=== PATIENT | male | born 1955 | race Caucasian/White ===

== ENCOUNTER 2018-10-22 13:45 | Inpatient (IN) | payer MEDICARE, MEDICAID ==
[~2018-10-22] VITALS: Ht 185.4 cm; Wt 107.0 kg
[~2018-10-22 13:45] MED LIST: CENTRUM SILVER1 EAC4 PO; FLEXERIL PO; NORCO 5-325 TA1 EACH PO; TORADOL 10 MG T10 MG PO
[2018-10-22 13:49] VITALS: BP 189/97
[2018-10-22] MEDS ORDERED: JANUMET 50-5001 EACH PO (13:58)
[2018-10-22] MEDS ORDERED: LIPITOR 20 MG T20 M1 PO (13:59)
[2018-10-22] MEDS ORDERED: XARELTO20 MG PO (13:59)
[2018-10-22] MEDS ORDERED: PROTONIX40 M1 PO (13:59)
[2018-10-22] MEDS ORDERED: NEURONTIN 300300 M1 PO (14:00)
[2018-10-22 14:30] LABS: HEMATOCRIT 37.5 % (42.0-52.0); HEMOGLOBIN 12.5 gm/dL (14.0-18.0); MCHC 33.3 g/dL (28.0-37.0); MCV 84.2 fL (80.0-100.0); MPV 9.2 fl. (7.2-11.1); NUCLEATED RBCS 0 /100WBC; PLATELET COUNT* 205 thou/uL (150-400); RBC 4.45 mil/uL (4.50-6.00); RDW-CV 14.8 % (10.5-14.5); WBC 15.5 thou/uL (4.0-11.0)
[2018-10-22 14:35] LABS: APTT 30.8 Seconds (25.0-31.3); INR 1.4; PROTIME 14.5 Seconds (9.20-11.50)
[2018-10-22 14:46] LABS: ALBUMIN 3.7 g/dL (3.4-5.0); ALKALINE PHOSPHATASE 131 U/L (46-116); ANION GAP 10 mmol/L (7-16); BUN 12 mg/dL (7-18); CALCIUM 8.9 mg/dL (8.5-10.1); CHLORIDE 101 mmol/L (98-107); CO2 30 mmol/L (21-32); GLUCOSE 122 mg/dL (70-99); LIPASE 59 U/L (73-393); MAGNESIUM 1.3 mg/dL (1.8-2.4); NT-PRO BRAIN NAT PEPTIDE 1964 pg/mL (<300); POTASSIUM 3.6 mmol/L (3.5-5.1); SGOT 17 U/L (15-37); SGPT 21 U/L (30-65); SODIUM 141 mmol/L (136-145); TOTAL BILIRUBIN 1.1 mg/dL (<0.1-1.0); TOTAL PROTEIN 7.8 g/dL (6.4-8.2); TROPONIN-I LEVEL <0.06 ng/mL (<0.06)
[2018-10-22 15:06] LABS: ABSOLUTE EOSINOPHILS 0.6 thou/uL (0.0-0.7); ABSOLUTE LYMPHOCYTES 0.6 thou/uL (0.8-5.3); ABSOLUTE MONOCYTES 0.2 thou/uL (0.0-1.2); ABSOLUTE NEUTROPHILS 14.1 thou/uL (1.6-8.1); PLATELET ESTIMATE ADEQUATE
[2018-10-22 16:00] VITALS: BP 148/71
[2018-10-22 17:12] VITALS: BP 169/81
[2018-10-23 04:22] LABS: HEMATOCRIT 33.9 % (42.0-52.0); HEMOGLOBIN 11.4 gm/dL (14.0-18.0); MCH 28.3 pg (26.0-34.0); MCHC 33.7 g/dL (28.0-37.0); MCV 84.1 fL (80.0-100.0); MPV 9.9 fl. (7.2-11.1); RBC 4.03 mil/uL (4.50-6.00); RDW-CV 14.7 % (10.5-14.5); WBC 18.9 thou/uL (4.0-11.0)
[2018-10-23 04:39] LABS: CALCIUM 8.8 mg/dL (8.5-10.1); CREATININE 1.5 mg/dL (0.6-1.3); MAGNESIUM 1.4 mg/dL (1.8-2.4); POTASSIUM 3.4 mmol/L (3.5-5.1)
[2018-10-23 07:50] VITALS: BP 131/77
[2018-10-23] MEDS ORDERED: METOPROLOL TART25 MG PO (08:02)
[2018-10-23] MEDS ORDERED: JANUMET 50-5001 EACH PO (08:02)
[2018-10-23 16:00] VITALS: BP 107/53
--- NOTE | 2018-10-23 16:57 | 2DMMODE ---
[place] [address] 2 D/M-MODE ECHOCARDIOGRAM Name: CHARY SINGH Room: [address] IN [facility]#: [id number] Admission: 10/22/18 Attend Phys: Octavia Ortiz, Discharge: Date of : 57 Date of Service: 10/23/18 1656 Report #: [id number] THIS REPORT FOR: //name// APPROVED REPORT Study performed: 10/23/2018 15:12:34 EXAM: Comprehensive 2D, Doppler, and color-flow Echocardiogram Patient Location: In-Patient Room #: 220 Status: routine BSA: 2.30 HR: 94 bpm BP: 131/77 mmHg Rhythm: NSR Other Information Study Quality: Good Indications Tachycardia 2D Dimensions IVSd: 13.26 (7-11mm) LVOT Diam: 21.64 (18-24mm) LVDd: 52.53 mm PWd: 15.01 (7-11mm) Ascending Ao: 33.85 (22-36mm) LVDs: 32.58 (25-40mm) Aortic Root: 35.22 mm Volumes Left Atrial Volume (Systole) LA ESV Index: 34.90 mL/m2 Aortic Valve AoV Peak Vin.: 1.65 m/s AO Peak Gr.: 10.89 mmHg LVOT Max P.19 mmHg AO Mean Gr.: 7.00 mmHg LVOT Mean P.32 mmHg LVOT Max V: 1.52 m/s AO V2 VTI: 29.40 cm LVOT Mean V: 1.08 m/s ALEX (VTI): 3.77 cm2 LVOT V1 VTI: 30.15 cm Mitral Valve E/A Ratio: 1.10 MV Decel. Time: 236.20 ms MV E Max Vin.: 1.02 m/[place] [address] 2 D/M-MODE ECHOCARDIOGRAM Name: CHARY SINGH Room: [address] IN .R.#: [id number] Admission: 10/22/18 Attend Phys: Octavia Ortiz, Discharge: Date of : 57 Date of Service: 10/23/18 1656 Report #: [id number] MV PHT: 68.50 ms MVA (PHT): 3.21 cm2 TDI E/Lateral E': 9.27 E/Medial E': 10.20 Medial E' Vin.: 0.10 m/s Lateral E' Vin.: 0.11 m/s Pulmonary Valve PV Peak Vin.: 1.30 m/s PV Peak Gr.: 6.71 mmHg Tricuspid Valve RAP Estimate: 5.00 mmHg TR Peak Gr.: 31.20 mmHg RVSP: 36.00 mmHg PA Pressure: 36.00 mmHg Left Ventricle The left ventricle is normal size. There is normal LV segmental wall motion. Mild concentric left ventricular hypertrophy. Left ventricular systolic function is normal. LVEF is 65-70%. Transmitral Doppler flow pattern suggests pseudonormalization. Right Ventricle The right ventricle is normal size. The right ventricular systolic function is normal. Atria Left atrium is at the upper limits of normal. The right atrium size is normal. Aortic Valve Mild aortic valve sclerosis. No aortic regurgitation is present. There is no aortic valvular stenosis. Mitral Valve The mitral valve is normal in structure. Trace mitral regurgitation. No evidence of mitral valve stenosis. Tricuspid Valve The tricuspid valve is normal in structure. Trace tricuspid regurgitation. The RVSP is 35-40 mmHg. Pulmonic Valve The pulmonary valve is normal in structure. There is no pulmonic [place] [address] 2 D/M-MODE ECHOCARDIOGRAM Name: CHARY SINGH Room: [address]#: [id number] Admission: 10/22/18 Attend Phys: Octavia Ortiz, Discharge: Date of : 57 Date of Service: 10/23/18 1656 Report #: [id number] Great Vessels The aortic root is normal in size. IVC is normal in size and collapses >50% with inspiration. Pericardium There is no pericardial effusion. <Conclusion> The left ventricle is normal size. Mild concentric left ventricular hypertrophy. Left ventricular systolic function is normal. LVEF is 65-70%. Transmitral Doppler flow pattern suggests pseudonormalization. Trace mitral regurgitation. Trace tricuspid regurgitation. The RVSP is 35-40 mmHg. IVC is normal in size and collapses >50% with inspiration. <ELECTRONICALLY SIGNED> By: Lamonte Perez MD, FACC 10/23/18 1656 55 55 Lamonte Perez MD, FACC /INF
[2018-10-23 19:40] VITALS: BP 120/65
[2018-10-24] VITALS: BP 111/60
[2018-10-24 04:00] VITALS: BP 128/67
[2018-10-24 05:27] LABS: HEMATOCRIT 30.1 % (42.0-52.0); HEMOGLOBIN 10.3 gm/dL (14.0-18.0); MCHC 34.1 g/dL (28.0-37.0); MCV 84.9 fL (80.0-100.0); RBC 3.54 mil/uL (4.50-6.00); RDW-CV 14.7 % (10.5-14.5); WBC 18.6 thou/uL (4.0-11.0)
[2018-10-24 05:36] LABS: CALCIUM 8.5 mg/dL (8.5-10.1); CREATININE 1.5 mg/dL (0.6-1.3); MAGNESIUM 1.6 mg/dL (1.8-2.4); POTASSIUM 4.4 mmol/L (3.5-5.1)
[2018-10-24 08:00] VITALS: BP 141/67
[2018-10-24 11:44] VITALS: BP 122/65
[2018-10-24 16:07] VITALS: BP 146/70
[2018-10-24 18:48] VITALS: BP 165/96
[2018-10-25] VITALS (7 sets, daily range): BP systolic 126–155; BP diastolic 63–93
[2018-10-25 10:24] LABS: CALCIUM 9.1 mg/dL (8.5-10.1); CREATININE 1.1 mg/dL (0.6-1.3); POTASSIUM 4.3 mmol/L (3.5-5.1)
--- NOTE | 2018-10-25 12:57 | EKG ---
[place] [address] ELECTROCARDIOGRAM REPORT Name: CHARY SINGH Room: [address] ADM IN .R.#: [id number] Admission: 10/22/18 Attend Phys: Octavia Ortiz MD Discharge: Date of : 57 Report #: [id number] THIS REPORT FOR: //name// [facility] ED Test Date: 2018-10-22 Test Time: 13:52:31 Pat Name: CHARY SINGH Department: Room: [facility] Gender: M Admissions Director: GRECIA : 1955 Requested By: Dc Liu Order Number: [id number] MD: Chary Forte Measurements Intervals [place] Rate: 122 P: -7 UT: 180 QRS: -39 QRSD: 93 T: 85 QT: 302 QTc: 431 Interpretive Statements Sinus tachycardia Ventricular bigeminy Left axis deviation Baseline wander in lead(s) V6 No previous ECG available for comparison Electronically Signed On 10-25-2018 12:56:50 CDT by Chary Forte [email or web address] <ELECTRONICALLY SIGNED> By: Chary Forte MD, [facility] 10/25/18 1256 [id number] 51 Chary Forte MD, [facility] /EPI
--- NOTE | 2018-10-25 14:28 | EKG ---
[place] [address] ELECTROCARDIOGRAM REPORT Name: CHARY SINGH Room: [address] ADM IN M.R.#: [id number] Admission: 10/22/18 Attend Phys: Octavia Ortiz MD Discharge: Date of : 57 Report #: [id number] THIS REPORT FOR: //name// [facility] Test Date: 2018-10-24 Test Time: 18:29:20 Pat Name: CHARY SINGH Department: Room: [address] Gender: M Enterprise Project Manager: MANUELA : 1955 Requested By: Octavia Ortiz Order Number: [id number] Reading MD: Milton Lama Measurements Intervals [place] Rate: 159 P: AR: QRS: -39 QRSD: 95 T: 122 QT: 286 QTc: 466 Interpretive Statements Atrial fibrillation with rapid V-rate Left axis deviation Repolarization abnormality, prob rate related Baseline wander in lead(s) V1 Compared to ECG 10/22/2018 13:52:31 Early repolarization now present Sinus tachycardia no longer present Ventricular premature complex(es) no longer present Electronically Signed On 10-25-2018 14:28:14 CDT by Milton Lama [email or web address] <ELECTRONICALLY SIGNED> By: Milton Lama MD, FAC 10/25/18 1428 182 [id number] Milton Lama MD, FAC /EPI
[2018-10-26] VITALS: BP 117/57
[2018-10-26 04:00] VITALS: BP 135/74
[2018-10-26 05:04] LABS: HEMOGLOBIN 10.9 gm/dL (14.0-18.0); MPV 9.7 fl. (7.2-11.1); RDW-CV 14.6 % (10.5-14.5); WBC 9.6 thou/uL (4.0-11.0)
[2018-10-26 05:12] LABS: HEMATOCRIT 32.1 % (42.0-52.0); MCH 28.6 pg (26.0-34.0); MCHC 33.9 g/dL (28.0-37.0); MCV 84.4 fL (80.0-100.0); RBC 3.8 mil/uL (4.50-6.00)
[2018-10-26 05:17] LABS: CALCIUM 9.2 mg/dL (8.5-10.1); CREATININE 0.9 mg/dL (0.6-1.3); POTASSIUM 3.8 mmol/L (3.5-5.1)
[2018-10-26 07:45] VITALS: BP 159/86
--- NOTE | 2018-10-26 09:55 | CON ---
[address] [address] CONSULTATION Name: FRANCISCOCHARY Kenton Room: [address] IN M.R.#: [id number] Admission: 10/22/18 Attend Phys: Octavia Ortiz MD Discharge: Date of : 57 Report #: [id number] THIS REPORT FOR: //name// CC: FAM unknown Octavia Ortiz CONSULTING PHYSICIAN: Dr. Ortiz. REASON FOR CONSULTATION: Acute kidney injury. HISTORY OF PRESENT ILLNESS: The patient is a 63-year-old gentleman, no preexisting history of kidney disease, admitted with cough, shortness of breath and a diagnosis of pneumonia with hypoxia. He was started on IV antibiotics and steroids. He was noted to have a creatinine yesterday of 1.5, prompting renal consult on 10/22/2018, his creatinine was 1. He did undergo a CT scan on the with contrast. Presently, he is feeling better. He has no complaints, appears to be comfortable. REVIEW OF SYSTEMS: Constitutional, psych, heme, eyes, ENT, respiratory, cardiac, GI, , endocrine, all negative except as documented above. PAST MEDICAL HISTORY: Diabetes, history of colon cancer, GERD, hypertension. SOCIAL HISTORY: No current tobacco, no alcohol. FAMILY HISTORY: Nonpertinent 63-year-old gentleman. CURRENT MEDICATIONS: Reviewed. PHYSICAL EXAMINATION: VITAL SIGNS: Blood pressure 151/70, pulse 89, temperature 36.7. GENERAL: No acute distress. Eyes open. EARS: Externally normal. NECK: Supple. CARDIOVASCULAR: Regular rate. LUNGS: No crackles. ABDOMEN: Soft. MUSCULOSKELETAL: Nontender. PSYCHIATRIC: Awake, alert. LABORATORY DATA: White cell count 18.6, hemoglobin 10.3, platelets 158. Sodium 143, potassium 4.3, chloride 106, bicarbonate 29, BUN 26, creatinine 1.1, glucose 345, calcium 9.1. ASSESSMENT AND PLAN: 1. Acute kidney injury with admission creatinine of 1.5 in the setting of pneumonia, 89 mL of oral contrast with a CTA on 10/22/2018 [place] [address] CONSULTATION Name: CHARY SINGH Room: [address] IN [facility].#: [id number] Admission: 10/22/18 Attend Phys: Octavia Ortiz MD Discharge: Date of : 57 Report #: [id number] creatinine of 1. An echo showing an ejection fraction of 65-70%. 2. Hypertension. 3. Diabetes type 2. 4. Pneumonia. 5. History of colon cancer. PLAN: Nonoliguric. creatinine improving. No further recommendations from my standpoint. I will sign off the case. He can follow up with his primary physician for routine followup once discharged. If any questions, do not hesitate to call. The patient was advised to avoid nonsteroid inflammatory drugs. Thank you for requesting my opinion in the care and management of this patient. <ELECTRONICALLY SIGNED> By: Ally Fine MD 10/26/18 0955 1122 [id number] Fine MD /nt
[2018-10-26 11:30] VITALS: BP 152/71
--- NOTE | 2018-10-26 11:32 | EKG ---
[place] [address] ELECTROCARDIOGRAM REPORT Name: CHARY SINGH Room: [address] ADM IN M.R.#: [id number] Admission: 10/22/18 Attend Phys: Octavia Ortiz MD Discharge: Date of : 57 Report #: [id number] THIS REPORT FOR: //name// [facility] Test Date: 2018-10-26 Test Time: 10:08:51 Pat Name: CHARY SINGH Department: Room: [address] Gender: M Field Support Representative: : 1955 Requested By: Tia Kaur Order Number: [id number] Mere MD: Chary Forte Measurements Intervals [place] Rate: 95 P: 39 UT: 141 QRS: -24 QRSD: 102 T: 65 QT: 378 QTc: 475 Interpretive Statements Sinus rhythm Ventricular premature complex Borderline left axis deviation Borderline prolonged QT interval Compared to ECG 10/24/2018 18:29:20 Ventricular premature complex(es) now present Atrial fibrillation no longer present Early repolarization no longer present Electronically Signed On 10-26-2018 11:31:49 CDT by Chary Forte [email or web address] <ELECTRONICALLY SIGNED> By: Chary Forte MD, [facility] 10/26/18 1131 1008 1008 Chary Forte MD, [facility] /EPI
[2018-10-26 15:30] VITALS: BP 152/71
[2018-10-26] MEDS ORDERED: FLECAINIDE ACET50 M2 PO (15:59)
== END 2018-10-26 16:23 | disposition home or self-care (01) | DRG 177 ==
LOC: M.ERS 13:45 → M.ORTHSURG 15:04 → M.2W 15:04 → M.TBA-ER 15:04 → M.ORTHSURG 16:03 → M.2W 10-23 10:42
PROVIDERS: Family Medicine; ADMIT Internal Medicine
DX: J15.6 Pneumonia due to other Gram-negative bacteria (principal); J96.01 Acute respiratory failure with hypoxia; N17.9 Acute kidney failure, unspecified; J45.909 Unspecified asthma, uncomplicated; E11.9 Type 2 diabetes mellitus without complications; K21.9 Gastro-esophageal reflux disease without esophagitis; I48.0 Paroxysmal atrial fibrillation; I11.9 Hypertensive heart disease without heart failure; Z85.038 Personal history of other malignant neoplasm of large intestine; Z93.3 Colostomy status; Z79.899 Other long term (current) drug therapy; Z79.84 Long term (current) use of oral hypoglycemic drugs; Z88.0 Allergy status to penicillin; Z87.891 Personal history of nicotine dependence; Z90.49 Acquired absence of other specified parts of digestive tract